=== PATIENT | male | born 1950 | race Caucasian/White ===

== ENCOUNTER 2016-07-08 17:06 | Inpatient (IN) | payer MEDICARE ==
--- NOTE | ~2016-07-08 | IDS ---
Interim Discharge Summary [facility] [address] [place]. [address] NAME: GAVINO LOPEZ : 46 STATUS : ADM IN [facility]#: [id number] AGE: 65 ADM/REG DATE : 07/08/16 MR#: [id number] REPORT SERV DATE: 07/13/16 DICTATED BY: DATE: REPORT STATUS : Draft TRANSCRIBED BY: MODL DATE: 07/13/16 ADMISSION DATE: 07/08/2016 DISCHARGE DATE: The patient was admitted to the Family Support Specialist Service, Dr. Henry Love. The patient is currently being managed by the Hospitalist Service, attending, Dr. Tyrone Camp. CONSULTANTS: Include, Dr. Porter Simon of General Surgery; Dr. Devonte Alexander of Hepatobiliary Surgery. CURRENT DIAGNOSES: 1. Hepatic mass with hemorrhage at admission, status post coil embolization in Interventional Radiology on 07/08/2016. 2. Hepatic mass status post CT-guided biopsy on 07/13/2016 in Interventional Radiology. 3. Chronic obstructive pulmonary disease with increased sputum production-currently being treated for bronchitis versus pneumonia. Sputum cultures and repeat chest x-ray pending. 4. History of daily alcohol abuse with early withdrawal evident 07/12/2016. On scheduled Librium and Ativan per CIWA protocol. 5. Right upper extremity swelling-rule out subclavian line associated deep venous thrombosis. 6. Prior history of myocardial infarction-home medications held due to hemorrhage and hypotension. 7. Generalized weakness-PT evaluation pending for discharge disposition planning. 8. Transaminitis-resolving, suspect due to liver mass with hemorrhage. Follow up hepatitis serologies. 9. Acute kidney injury present at admission-resolved. 10.Lipasemia at admission-resolved. IMAGIN. Portable chest x-ray, 07/08/2016, for shortness of breath shows severe emphysematous changes. 2. CT abdomen and pelvis, 07/08/2016, hemoperitoneum with significant amount of free blood. No history of a prior liver biopsy. Density may be small granuloma. Evidence of tumor in the right hepatic lobe. 3. Portable chest x-ray, 07/08/2016, status post subclavian line placement shows tip in the superior vena cava. 4. Visceral angiography, 07/08/2016, shows exophytic tumor with bleeding site identified arising from the inferior margin of the right liver. Technically successful coil embolization of the dominant feeding arteries. No additional arteries observed at this time. 5. Portable chest x-ray, 07/09/2016, COPD with no acute cardiopulmonary abnormality. PERTINENT LABS: Admission creatinine value 1.7, current value 0.8. Initial AST 575, currently 46; initial ALT 204, currently 54; initial alkaline phosphatase normal; initial total bilirubin 1.5, presently 1.6; initial lipase 1083, currently 165. Ammonia 45. BNP Interim Discharge Summary [address] [place]. [address] NAME: GAVINO LOPEZ : 46 STATUS : ADM IN [facility]#: [id number] AGE: 65 ADM/REG DATE : 07/08/16 MR#: [id number] REPORT SERV DATE: 07/13/16 DICTATED BY: DATE: REPORT STATUS : Draft TRANSCRIBED BY: MODL DATE: 07/13/16 72. Initial lactic acid level 3.5. Initial white blood cell count 24.2, currently 10.5. Hemoglobin values ranging from 9.8 to 12.8, currently 12.0. Platelet counts have been normal. INR 1.3 to 1.7. BRIEF HISTORY: For full details, please see the previously dictated history of present illness by Dr. Henry Love. Briefly, this is a 65-year-old white male with past medical history of alcohol abuse, hypertension, prior LA, who presented to the emergency department on the 07/08/2016 with chief complaints of abdominal tenderness and diarrhea. He also endorsed presyncope in the emergency department. In the emergency department, he had a CT scan of the abdomen showing bleeding around the liver and some intraperitoneal blood as well. The patient had a dynamic CT scan of the abdomen and pelvis demonstrating a liver mass. He went from the emergency department to Interventional Radiology for embolization and then was admitted to the intensive care unit to the Family Support Specialist Service. HOSPITAL COURSE: The patient was managed in the intensive care unit from 07/08/2016 to 07/10/2016, at which point, he was transferred out to the floor. I assumed his care on 07/11/2016. He was on Flagyl at that point for concern for possible liver infection. He was not demonstrating any evidence of rebleeding following his coil embolization in Interventional Radiology on the 07/08/2016. He has not required transfusions this admission. His hypotension has largely resolved and his home medications for hypertension and past myocardial infarction have been held. He was seen in consultation this week by Dr. Devonte Alexander of Hepatobiliary Surgery, who recommended CT-guided biopsy in Interventional Radiology. This took place today, 07/13/2016. The patient has had no difficulties post procedure and is currently recovering well back on [address] [place] [address]. Other issues this week have included early alcohol withdrawal. The patient does have a history of daily alcohol abuse, although on direct questioning, will deny this, but his family confirms. He has been on scheduled Librium this week with dose increased on the 07/12/2016 for evidence of increased irritability and some slight confusion. He has also been placed on the CIWA protocol and is receiving regular doses of Ativan. His mentation is improving, but today, his family was concerned that his irritability may also be related to pain medications and requested a change from Roxicodone to something different. Tramadol has been started instead. Also, through the course of this week, the patient has been demonstrating some increased sputum production and a weak cough. He was started on Levaquin on the 07/12/2016 for possible bronchitis. Chest x-ray on the 07/09/2016 was non revealing, but repeat is pending. The patient is now producing sputum and this will be sent for Gram stain and culture. His DuoNebs will be scheduled as well as he does have an extensive history of COPD with radiographic changes consistent with extensive COPD. Just today, the patient demonstrated some right upper extremity swelling. He does have a right subclavian line in place, placed on 07/08/2016 for resuscitation efforts. An ultrasound is pending of the right upper extremity to rule out a subclavian line associated DVT. Interim Discharge Summary [facility] [address] [address] [place]. [address] NAME: GAVINO LOPEZ : 46 STATUS : ADM IN PAT#: [id number] AGE: 65 ADM/REG DATE : 07/08/16 MR#: [id number] REPORT SERV DATE: 07/13/16 DICTATED BY: DATE: REPORT STATUS : Draft TRANSCRIBED BY: MODL DATE: 07/13/16 The patient remains very generally weak. He has been evaluated by Physical Therapy prior to the liver biopsy with a recommendation to consider inpatient physical therapy. At that time, he was reluctant. Physical therapy evaluation has been reordered to assist in discharge disposition planning. DISPOSITION: The patient remains hospitalized at present-results needing to be followed up include pathology from today's liver biopsy, hepatitis serologies, chest imaging, and the stat ultrasound of the right upper extremity pending to evaluate for subclavian associated DVT. RACIEL/JACEY Tyrone Camp M.D. / [id number] CC: Felice Gallardo MD
--- NOTE | ~2016-07-08 | HP ---
History And Physical [address] [place]. [address] NAME: GAVINO LOPEZ : 46 STATUS : ADM IN [facility]#: [id number] AGE: 65 ADM/REG DATE : 07/08/16 MR#: [id number] REPORT SERV DATE: 07/09/16 DICTATED BY: HENRY LOVE DATE: 07/08/16 REPORT STATUS : Draft TRANSCRIBED BY: MODL DATE: 07/08/16 DATE OF ADMISSION: 07/08/2016 CHIEF COMPLAINT: Abdominal pain. ADMISSION DIAGNOSIS: Intraabdominal bleeding, liver mass, hypotension, kidney injury, liver injury. HISTORY OF PRESENT ILLNESS: Mr. Lopez is a 65-year-old male with a past medical history noted below who presented to the hospital after having diarrhea abdominal tenderness. He was not feeling well. This started yesterday at 6 o'clock. It was mostly on the right side. He felt that it was severe enough that he needed to come in. Also, he has been having worsening diarrhea and diaphoresis. In the emergency room, the patient was noted to be lightheaded and with his severe abdominal pain, it was decided to go ahead and get a CT scan of his abdomen. There was noted the bleeding around the liver at that time. He had a dynamic CT scan which showed a liver mass. He eventually went and got that embolized by Interventional Radiology and still has a sheath in his right groin. Otherwise, the patient complains of nausea and vomiting along with cold flashes. On review of systems, he denies having any weight loss. PAST MEDICAL HISTORY: Myocardial infarction, anxiety, alcohol use. MEDICATIONS: Aspirin, statin medication. ALLERGIES: TO PENICILLIN AND DEMEROL. FAMILY HISTORY: Grandmother had gastric cancer, mother had colon cancer. SOCIAL HISTORY: The patient is currently , he continues to smoke, drinks around one to two bottles of alcohol a day. REVIEW OF SYSTEMS: All pertinent review of systems reviewed and is otherwise negative, please see above. PHYSICAL EXAMINATION: VITAL SIGNS: Afebrile, heart rate around 95, blood pressure currently around 130 systolic, respiratory rate normal, oxygen saturation greater than 95% on room air. GENERAL: The patient is in no acute distress; diaphoresis, however. HEENT: No JVD is noted, neck is supple. PULMONARY: Lungs are clear to auscultation bilaterally. ABDOMEN: The patient has mild epigastric pain, but otherwise no guarding or rebound. EXTREMITIES: All extremity is noted to have pulses, lukewarm. Sheath is in place with no significant bleeding. NEUROLOGIC: No focal neurological deficits. LABORATORY EXAMINATION: Hemoglobin 12.8, white blood cell count 24.2. Creatinine 1.74. History And Physical [address] [address] NAME: GAVINO LOPEZ : 46 STATUS : ADM IN [facility]#: [id number] AGE: 65 ADM/REG DATE : 07/08/16 MR#: [id number] REPORT SERV DATE: 07/09/16 DICTATED BY: HENRY LOVE DATE: 07/08/16 REPORT STATUS : Draft TRANSCRIBED BY: JACEY DATE: 07/08/16 Lactate 3.5. AST 575. Lipase 1083. ALT 204, bilirubin 1.5. RADIOLOGY: Please see above with regard to CT scan of the abdomen. ASSESSMENT AND PLAN: Mr. Lopez is a 65-year-old male who presents with the above-named complaints. 1. Liver mass: Unclear of this abnormality. Per Radiology, it is noted that this is a mass, I am also concerned of a liver abscess. We will start metronidazole. The patient will definitely need to have followup of this abnormality after the bleed, most likely an MRI and possibly biopsy. 2. Intraabdominal bleeding: The patient is to have q.6-hour CBC and transfuse as needed. The patient is currently hemodynamically stable and does not need an A-line. 3. Alcohol use: We will go ahead and start Librium. 4. Transaminitis: Unclear whether this is alcoholic hepatitis or whether this is new, we will continue to trend lipase and LFTs. 5. Pancreatitis: As noted above, lipase is elevated. Clinically, however, the patient does not have acute pancreatitis-like syndrome. We will continue to check lipase and provide clear liquid. 6. Acute diarrhea: Unclear of the etiology. We will check a C. difficile. 7. Sheath in the right groin: Once the patient is noted to be not bleeding any further, consider the discontinuation of this sheath. 8. Diet: As noted above. 9. Prophylaxis: SCDs, Protonix. 10.Code status: The patient is currently full code. HFQ/MODL Henry Love MD / [id number] CC: MD Luis Archuleta MD
--- NOTE | ~2016-07-08 | CN ---
Consultation Report [facility] [address] [place]. [address] NAME: GAVINO LOPEZ : 46 STATUS : ADM IN [facility]#: [id number] AGE: 65 ADM/REG DATE : 07/08/16 MR#: [id number] REPORT SERV DATE: 07/16/16 DICTATED BY: RODRÍGUEZ LARSON III DATE: 07/16/16 REPORT STATUS : Draft TRANSCRIBED BY: JACEY DATE: 07/16/16 CONSULTATION DATE OF CONSULTATION: 07/16/2016 REASON FOR CONSULTATION: Hepatic mass. HISTORY OF PRESENT ILLNESS: Mr. Lopez is a 65-year-old man who presented to the hospital with diarrhea and abdominal pain. A CT scan of his abdomen revealed a right liver mass, which appeared to have ruptured. He required embolization with Interventional Radiology for stabilization. Since that time, he has been diagnosed with a right upper extremity DVT. He also has hepatic encephalopathy and is receiving lactulose. PAST MEDICAL HISTORY: 1. Coronary artery disease status post DE. 2. Alcohol abuse. 3. Hepatitis C. 4. Anxiety. MEDICATIONS: Include aspirin and a statin. ALLERGIES: TO PENICILLIN AND DEMEROL. FAMILY HISTORY: Significant for grandmother with gastric cancer and mother with colon cancer. SOCIAL HISTORY: He is . Does smoke and drinks alcohol daily. REVIEW OF SYSTEMS: Unable to be obtained secondary to encephalopathy. PHYSICAL EXAMINATION: VITAL SIGNS: Blood pressure is 114/74, temperature is 97.6, pulse is 114, respiratory rate is 34. GENERAL: This is a well-developed, well-nourished man, in moderate distress secondary to agitation. EYES: Pupils are round and reactive to light. Extraocular muscles are intact. NECK: Supple with no masses or thyroid enlargement. No JVD. CARDIOVASCULAR: Regular rate and rhythm with no audible murmurs. There is no peripheral edema, other than the right upper extremity which has 2+ edema. LUNGS: Clear to auscultation bilaterally with normal respiratory effort. ABDOMEN: Soft, nontender, and nondistended with no ascites noted. SKIN: Warm and dry with good skin turgor. There is no jaundice noted. NEUROLOGIC: He is alert, but not oriented to person, place, or time. Consultation Report [facility] [address] [place]. [address] NAME: GAVINO LOPEZ : 46 STATUS : ADM IN PAT#: [id number] AGE: 65 ADM/REG DATE : 07/08/16 MR#: [id number] REPORT SERV DATE: 07/16/16 DICTATED BY: RODRÍGUEZ LARSON III DATE: 07/16/16 REPORT STATUS : Draft TRANSCRIBED BY: MODGale DATE: 07/16/16 IMAGING: CT scan was reviewed, did reveal a right liver mass. ASSESSMENT AND PLAN: 1. Liver mass. We will check an AST. Pathology is pending. I suspect he does have hepatocellular carcinoma given his alcohol and hepatitis C history. Question whether he is a hospice candidate or if he would be able to tolerate any treatment, and we will see if his mental status does improve. 2. Deep vein thrombosis, currently holding anticoagulation secondary to recent bleed secondary to ruptured hepatic mass. 3. We will follow along while inpatient and arrange outpatient followup upon discharge. MATTEO/JACEY Rodríguez Larson III, M.D. / [id number] CC: MD Luis Hernandez MD
--- NOTE | ~2016-07-08 | CN ---
Consultation Report [facility] [address] [place]. [address] NAME: GAVINO LOPEZ : 46 STATUS : ADM IN PAT#: [id number] AGE: 65 ADM/REG DATE : 07/08/16 MR#: [id number] REPORT SERV DATE: 07/10/16 DICTATED BY: JOAO SIMON DATE: 07/08/16 REPORT STATUS : Draft TRANSCRIBED BY: MODL DATE: 07/08/16 CONSULTATION NOTE DATE OF CONSULTATION: 07/08/2016 REASON FOR CONSULT: Evaluation of actively bleeding liver mass. CHIEF COMPLAINT: Abdominal pain. HISTORY OF PRESENT ILLNESS: This is a history and physical obtained as the patient was being transported to Interventional Radiology for embolization. Full details will be thoroughly investigated after the procedure and we will do chart review. For the time being, the patient presented to the emergency department after acute onset of pain at 6 p.m. yesterday which persisted and worsened throughout the night. It was associated with multiple bouts of nonbloody diarrhea as well as nonbloody, nonbilious emesis. Given the persistence of the pain and GI disturbances, he presented to the emergency department where initial CT scan without contrast showed concern for hemoperitoneum around right paracolic gutter and above the liver. There was additionally some perisplenic fluid. The patient was re-imaged using IV contrast which revealed what appeared to be a tumor in the right hepatic lobe, possibly ruptured. Interventional radiologists were called for embolization at that time. The patient at the time of this interview was being transported for that emergent embolization. In a brief discussion, he did indicate that this has never happened before and he did have a colonoscopy within the last 10 years which was normal per his report. He does take aspirin daily, but no other blood thinners. He reports a history of two heart attacks in the past, most recently in the fall of 2016 where revascularization stent was undertaken. Currently, complains of significant abdominal pain located in the right upper quadrant with no nausea. He denies the use of much alcohol though the patient's and another accomplice endorse that he drinks at least 6 packs of beer daily. He has never had an upper endoscopy that he can remember. On admission to the emergency department, he was hypotensive with a blood pressure initially in the 80s which responded to administration of 2 L of IV fluid where tachycardia resolved down to the low 100s and blood pressure responded into the one-teens over 60s. He was typed and crossed and right subclavian central venous line was placed. Further details of this patient's history will be reviewed following his brief history from his . PAST MEDICAL HISTORY: 1. Alcohol abuse. 2. Coronary artery disease. 3. Hypertension. PAST SURGICAL HISTORY: The patient denies any surgeries in his abdomen, though did have what he states was an amputated arm which was reattached on the left. Unsure of this history and no medical records available. MEDICATIONS: The patient reports daily aspirin and a blood pressure medicine, he does not Consultation Report [address] [place]. [address] NAME: GAVINO LOPEZ : 46 STATUS : ADM IN [facility]#: [id number] AGE: 65 ADM/REG DATE : 07/08/16 MR#: [id number] REPORT SERV DATE: 07/10/16 DICTATED BY: JOAO SIMON DATE: 07/08/16 REPORT STATUS : Draft TRANSCRIBED BY: JACEY DATE: 07/08/16 know. He once took Plavix, but is no longer on it per his report. ALLERGIES: THE PATIENT DENIES. FAMILY HISTORY: The patient denies any significant family history. SOCIAL HISTORY: The patient is a retired deliveryman, a [place] . He has smoked most of his life and uses occasional marijuana. He denies the use of much alcohol, although the patient's endorses the use of at least a 6-pack daily. PHYSICAL EXAMINATION: VITAL SIGNS: Temp 97.8, blood pressure 112/64, pulse 108, respirations 20. GENERAL APPEARANCE: The patient is alert and oriented, in no distress. He appears to be his stated age of 65. HEAD, EYES, EARS, NOSE, AND THROAT: Extraocular muscles are grossly intact. There is no scleral icterus. No facial droop. Oropharynx and conjunctivae are pink and moist. Hearing is grossly normal. NECK: Examination of the neck reveals no cervical lymphadenopathy. CHEST: No audible wheezes and excursion is nonlabored. CARDIOVASCULAR: Heart rate is regular with good distal perfusion and 2+ pulses in the extremities. ABDOMEN: Examination of the abdomen reveals some tenderness in the right upper quadrant, this is more prominent than in all other quadrants. He is soft and nondistended. EXTREMITIES: Showed no deformity, cyanosis, or edema. PSYCHIATRIC: Appropriate mood and affect. Speech pattern is normal. NEUROLOGIC: Reveals no focal deficits. LABORATORY STUDIES: Significant for lactate of 3.5; white blood cell count of 24.2, hemoglobin of 12.8, as well as a platelet count of 350; INR is slightly elevated at 1.3; the slightly elevated protime of 15.7. CMP significant for THADDEUS with a creatinine of 1.74, glucose of 145, bilirubin 1.5, an alkaline phosphatase of 85, ALT 204, AST 575, and lipase 1083. ASSESSMENT AND PLAN: This is a 65-year-old male with what appears to be a bleeding hepatic mass of unknown etiology. He does have some free fluid around the spleen, this may simply be dependent from the liver. He has originally been taken to the interventional radiologist for attempted embolization. Emergent hepatic resection is not recommended at this time, and the patient will need resuscitation and management of his medical comorbidities in the intensive care unit. He does have acute kidney injury as well as an elevated lipase and transaminitis. He will need biopsy of this in the future though the important management decision is based solely on stopping any active extravasation. We would recommend continuing the patient on n.p.o. status until further workup of his intraabdominal process can be obtained. In the meantime, General Surgery will be happy to follow along should the patient show any signs of clinical deterioration requiring surgical intervention outside of the Interventional Radiology suite. This patient was discussed with Dr. Simon who Consultation Report [address] [address] NAME: GAVINO LOPEZ : 46 STATUS : ADM IN PAT#: [id number] AGE: 65 ADM/REG DATE : 07/08/16 MR#: [id number] REPORT SERV DATE: 07/10/16 DICTATED BY: JOAO SIMON DATE: 07/08/16 REPORT STATUS : Draft TRANSCRIBED BY: JACEY DATE: 07/08/16 understands and agrees. DICTATED BY: MD IRVIN Nichols/JACEY Joao Simon M.D. / [id number] CC: MD Luis Archuleta MD
--- NOTE | ~2016-07-08 | DS ---
Discharge Summary [facility] [address] [place]. [address] NAME: GAVINO LOPEZ : 46 STATUS : DIS IN PAT#: [id number] AGE: 65 ADM/REG DATE : 07/08/16 MR#: [id number] REPORT SERV DATE: 07/19/16 DICTATED BY: ANTONIETA HINTON DATE: 07/18/16 REPORT STATUS : Draft TRANSCRIBED BY: MODL DATE: 07/18/16 ADMISSION DATE: 07/08/2016 DISCHARGE DATE: 07/18/2016 CONSULTATION: 1. Hepatobiliary surgeon Dr. Devonte Alexander. 2. Oncology Dr. Rodríguez Gagnon. 3. Gastroenterology Dr. Joao Simon. INVASIVE PROCEDURE DONE: 1. Emergency hepatic artery embolization, successful. 2. Liver biopsy. Pathology reports; hepatobiliary carcinoma confirmed. Official report not available in [employer] at the time of this dictation (however, a discussion was held with the pathologist who confirmed that the definitive diagnosis of hepatocellular carcinoma). DISCHARGE DIAGNOSES: 1. Hepatocellular cancer. 2. Hepatic encephalopathy. 3. Hepatic failure. 4. Hepatitis C infection. 5. Alcohol abuse. 6. Acute deep vein thrombosis of the right upper extremities. 7. Acute bronchitis. 8. Chronic obstructive pulmonary disease. 9. Hepatic hemorrhage, now resolved. 10.Acute kidney injury, present on admission, but resolved. DISCHARGE CONDITION: Critical. DISCHARGE DISPOSITION: Hospice. HISTORY OF PRESENT ILLNESS: For detailed HPI, please make reference to Dr. Henry Love's dictation on 07/08/2016. In brief, this is a 65-year-old male with medical history of alcohol abuse, COPD who presented to the hospital with complaints of severe abdominal pain associated with diarrhea and diaphoreses. Vital signs in the ER shows a heart rate of 95 beats per minute, blood pressure of 130 systolic, saturating 95% on room air. Physical exam noted for epigastric tenderness. No rebound. No guarding. CT of the abdomen showed a tumor that has ruptured in the right hepatic lobe. Laboratory data revealed hemoglobin of 12.8, hematocrit 42.3, WBC 24.2, platelets 350. INR 1.3. An assessment of hepatic mass with ruptured hemorrhage was made in the ER. The patient was transferred for an emergency embolization. The patient underwent embolization of the hepatic artery without any significant complications. Repeat abdominal imaging shows that Discharge Summary [facility] [address] [place]. [address] NAME: GAVINO LOPEZ : 46 STATUS : DIS IN PAT#: [id number] AGE: 65 ADM/REG DATE : 07/08/16 MR#: [id number] REPORT SERV DATE: 07/19/16 DICTATED BY: ANTONIETA HINTON DATE: 07/18/16 REPORT STATUS : Draft TRANSCRIBED BY: MODGale DATE: 07/18/16 the procedure was successful. The patient subsequently then underwent a liver biopsy. The pathology report of the liver biopsy confirmed the presence of hepatocellular carcinoma. HOSPITAL COURSE: Hepatic encephalopathies due to hepatocellular carcinoma. The patient was subsequently transferred from the ICU to the regular floor. He became progressively confused. Ammonia level was elevated. He was started on lactulose and rifaximin, however, his mental status progressively continued to decline. Oncology was consulted. Given the patient's overall prognosis and worsening mental status and possible liver failure, the patient is deemed at this time not a candidate for aggressive intervention. Also family expressed wish that the patient would not want to pursue any aggressive and invasive intervention. Also, an extensive family meeting was held between the patient's and his 2 daughters who all agreed after multiple deliberations that the patient should be transitioned to hospice care. The patient's code status was made DNR DNI. [facility] was consulted. The patient will be transferred to hospice care later today per family's wishes. DICTATED BY: MD ALAN Hernandez/JACEY Antonieta Hinton MD / [id number] CC: MD Luis Hernandez MD
--- NOTE | ~2016-07-08 | CN ---
Consultation Report [facility] [address] [place]. [address] NAME: GAVINO LOPEZ : 46 STATUS : ADM IN [facility]#: [id number] AGE: 65 ADM/REG DATE : 07/08/16 MR#: [id number] REPORT SERV DATE: 07/12/16 DICTATED BY: JAN ALEXANDER DATE: 07/12/16 REPORT STATUS : Draft TRANSCRIBED BY: MODL DATE: 07/12/16 CONSULTATION DATE OF CONSULTATION: 07/12/2016 REASON FOR CONSULTATION: Liver mass. HISTORY OF PRESENT ILLNESS: The patient is a pleasant, 65-year-old white male, who was admitted several days ago and found to have accidentally bleeding liver mass. The patient presented initially to the emergency room after acute onset of abdominal pain, as well as nausea and diarrhea. Initial CT scan showed hemoperitoneum and a right-sided liver mass. The patient was taken emergently to Interventional Radiology for embolization due to hypotension. He has since been hemodynamically stable and has not had any additional abdominal pains. He has otherwise been in his baseline state of health. He does have a significant alcohol intake history and drinks at least a six-pack of beer daily. Unless it is on history of present illness and past medical history is taken from the chart, he is currently undergoing at least some degree of withdrawal and has some confusion. He has no known liver disease. REVIEW OF SYSTEMS: A complete 12-point review of system was obtained and is negative for what is mentioned positively in the HPI. PAST MEDICAL HISTORY: Significant for coronary artery disease, hypertension, and alcohol abuse. PAST SURGICAL HISTORY: Positive for arm surgery, but no abdominal surgeries. MEDICATIONS: Please see chart for full details. ALLERGIES: NO KNOWN DRUG ALLERGIES. FAMILY HISTORY: Noncontributory. SOCIAL HISTORY: He is a current smoker and every day drink at least six beers a day. He does endorse occasional marijuana use. Denies other illicit drugs. PHYSICAL EXAMINATION: VITAL SIGNS: Blood pressure is 100/63, O2 saturation 99%, temperature is 98.4, pulse 96, and respirations 20. GENERAL: He is alert and nontoxic. HEENT: Head is normocephalic and atraumatic. NECK: Supple. CHEST: Clear to auscultation bilaterally. Consultation Report [facility] [address]. [address] NAME: GAVINO LOPEZ : 46 STATUS : ADM IN PAT#: [id number] AGE: 65 ADM/REG DATE : 07/08/16 MR#: [id number] REPORT SERV DATE: 07/12/16 DICTATED BY: JAN ALEXANDER DATE: 07/12/16 REPORT STATUS : Draft TRANSCRIBED BY: JACEY DATE: 07/12/16 HEART: Regular rate and rhythm. ABDOMEN: Soft, nontender, and nondistended. EXTREMITIES: Moves all extremities equally. NEUROLOGIC: He is alert, but somewhat confused. He is oriented to self and location. SKIN: Warm and perfused. LABORATORY DATA: Lab data has been reviewed. His liver function tests are within normal limits except for bilirubin, which is slightly elevated at 1.6. His transaminases are elevated upon admission but returned to normal. H and H stable at 10.8 and 33. Platelets are normal at 180. IMAGING: I have personally reviewed the CT scan and interpreted the images myself. ASSESSMENT/PLAN: This is a 65-year-old, white male, who was admitted with a bleeding liver mass, which has now stopped bleeding. This is concerning for hepatocellular carcinoma in light of his drinking history, although he has no obvious stigmata of cirrhosis. I discussed his case with Dr. Camp and we will consult Interventional Radiology for CT- guided biopsy. We will also check hepatitis viral panel. APOORVA/JACEY Jan Alexander MD / [id number] CC: Felice Gallardo MD
[2016-07-08 15:17] LABS: BASOPHILS 0.1 %; BASOPHILS ABSOLUTE 0.02 10/3/uL (0.0-0.16); EOSINOPHILS 0 %; EOSINOPHILS ABSOLUTE 0.01 10/3/uL (0.0-0.53); ER CBC TAT 0 Hrs 16 Mins; HEMATOCRIT 38.1 % (40.0-51.0); HEMOGLOBIN 12.8 g/dL (13.6-17.8); IMMATURE GRANULOCYTES 0.4 %; IMMATURE GRANULOCYTES ABSOLUTE 0.09 10/3/uL (0.0-0.11); LYMPHOCYTES 11.5 %; LYMPHOCYTES ABSOLUTE 2.78 10/3/uL (0.67-4.30); MEAN CORPUS HGB CONC 33.6 g/dL (32.0-36.0); MEAN CORPUSCULAR HEMOGLOB 32.2 pg (26.0-34.0); MEAN CORPUSCULAR VOLUME 95.7 fL (80-100); MEAN PLATELET VOLUME 10.2 fL (9.2-13.0); MONOCYTES 9.1 %; NEUTROPHILS 78.9 %; NEUTROPHILS ABSOLUTE 19.05 10/3/uL (2.02-8.40); PLATELET COUNT 350 10/3/uL (150-400); RBC DISTRIBUTION WIDTH 13.3 % (12.0-16.0); RED CELL COUNT 3.98 10/6/uL (4.7-6.1); WHITE BLOOD CELLS 24.2 10/3/uL (4.5-10.5)
[2016-07-08 15:19] LABS: MANUAL DIFF NO %
[2016-07-08 15:28] LABS: A/G RATIO 0.7 (0.7-1.9); ALBUMIN 2.9 G/DL (3.5-5.0); ALKALINE PHOSPHATASE 85 U/L (45-117); CALCIUM, SERUM 8.6 MG/DL (8.5-10.4); CHLORIDE, SERUM 107 MMOL/L (96-112); CO2 (CARBON DIOXIDE) 25 MMOL/L (24-34); GLOBULIN 3.9 G/DL (2.5-4.1); SGPT(ALT) 204 U/L (5-65); SODIUM, SERUM 139 MMOL/L (135-148); TOTAL PROTEIN 6.8 G/DL (6.0-8.5)
[2016-07-08 15:30] LABS: BUN (BLOOD UREA NITROGEN) 23 MG/DL (6-23); CREATININE 1.74 MG/DL (0.70-1.30); GFR AFRICAN AMERICAN 46 ML/MIN (>=60); GFR NON AFRICAN AMERICAN 40 ML/MIN (>=60); GLUCOSE, SERUM 145 MG/DL (60-99); SGOT(AST) 575 U/L (5-40); TOTAL BILIRUBIN 1.5 MG/DL (0-1.2)
[2016-07-08 15:51] LABS: LACTATE 3.5 MMOL/L (0.3-2.4)
[2016-07-08 17:10] LABS: INTERNATIONAL NORMAL RATI 1.3 UNITS (-); PROTIME (NOT ORD) 15.7 SEC (12.0-14.5)
[2016-07-08 17:11] LABS: PARTIAL THROMBO TIME 29.4 SEC (22.5-37.2)
[2016-07-08] MEDS ORDERED: TOPXL25 PO (17:21)
[2016-07-08] MEDS ORDERED: ASAB PO (17:21)
[2016-07-08] MEDS ORDERED: PRIN2.5 PO (17:22)
[2016-07-08] MEDS ORDERED: LIPITOR80 MG PO (17:22)
[2016-07-08 17:29] LABS: PROCALCITONIN 0.41 ng/mL (<0.5)
[2016-07-09 00:05] LABS: BASOPHILS 0.1 %; BASOPHILS ABSOLUTE 0.02 10/3/uL (0.0-0.16); EOSINOPHILS 0 %; IMMATURE GRANULOCYTES 0.4 %; IMMATURE GRANULOCYTES ABSOLUTE 0.07 10/3/uL (0.0-0.11); LYMPHOCYTES 14.5 %; LYMPHOCYTES ABSOLUTE 2.35 10/3/uL (0.67-4.30); MEAN CORPUS HGB CONC 34.3 g/dL (32.0-36.0); MEAN CORPUSCULAR HEMOGLOB 32.2 pg (26.0-34.0); MEAN PLATELET VOLUME 9.7 fL (9.2-13.0); MONOCYTES 11.1 %; NEUTROPHILS 73.9 %; NEUTROPHILS ABSOLUTE 11.96 10/3/uL (2.02-8.40); RBC DISTRIBUTION WIDTH 13.6 % (12.0-16.0); WHITE BLOOD CELLS 16.2 10/3/uL (4.5-10.5)
[2016-07-09 00:10] LABS: HEMOGLOBIN 9.7 g/dL (13.6-17.8); PLATELET COUNT 209 10/3/uL (150-400); RED CELL COUNT 3.01 10/6/uL (4.7-6.1)
[2016-07-09 00:11] LABS: HEMATOCRIT 28.3 % (40.0-51.0); MANUAL DIFF NO %
[2016-07-09 05:23] LABS: BASOPHILS 0.1 %; BASOPHILS ABSOLUTE 0.01 10/3/uL (0.0-0.16); EOSINOPHILS 0.6 %; EOSINOPHILS ABSOLUTE 0.07 10/3/uL (0.0-0.53); HEMATOCRIT 32.4 % (40.0-51.0); HEMOGLOBIN 10.8 g/dL (13.6-17.8); IMMATURE GRANULOCYTES 0.3 %; IMMATURE GRANULOCYTES ABSOLUTE 0.04 10/3/uL (0.0-0.11); LYMPHOCYTES 18.8 %; LYMPHOCYTES ABSOLUTE 2.33 10/3/uL (0.67-4.30); MANUAL DIFF NO %; MEAN CORPUS HGB CONC 33.3 g/dL (32.0-36.0); MEAN CORPUSCULAR HEMOGLOB 32.1 pg (26.0-34.0); MEAN CORPUSCULAR VOLUME 96.4 fL (80-100); MEAN PLATELET VOLUME 10.8 fL (9.2-13.0); MONOCYTES ABSOLUTE 1.61 10/3/uL (0.21-1.20); NEUTROPHILS 67.2 %; NEUTROPHILS ABSOLUTE 8.33 10/3/uL (2.02-8.40); PLATELET COUNT 185 10/3/uL (150-400); RBC DISTRIBUTION WIDTH 13.8 % (12.0-16.0); RED CELL COUNT 3.36 10/6/uL (4.7-6.1); WHITE BLOOD CELLS 12.4 10/3/uL (4.5-10.5)
[2016-07-09 07:50] LABS: A/G RATIO 0.8 (0.7-1.9); ALBUMIN 2.5 G/DL (3.5-5.0); BUN (BLOOD UREA NITROGEN) 21 MG/DL (6-23); CALCIUM, SERUM 7.9 MG/DL (8.5-10.4); CHLORIDE, SERUM 111 MMOL/L (96-112); CO2 (CARBON DIOXIDE) 25 MMOL/L (24-34); GLOBULIN 3.2 G/DL (2.5-4.1); GLUCOSE, SERUM 124 MG/DL (60-99); SGOT(AST) 240 U/L (5-40); SGPT(ALT) 148 U/L (5-65); SODIUM, SERUM 142 MMOL/L (135-148); TOTAL PROTEIN 5.7 G/DL (6.0-8.5)
[2016-07-09 07:51] LABS: ALKALINE PHOSPHATASE 67 U/L (45-117); CREATININE 0.95 MG/DL (0.70-1.30); GFR AFRICAN AMERICAN 96 ML/MIN (>=60); GFR NON AFRICAN AMERICAN 83 ML/MIN (>=60); TOTAL BILIRUBIN 0.8 MG/DL (0-1.2)
[2016-07-09 12:42] LABS: BASOPHILS 0.2 %; BASOPHILS ABSOLUTE 0.02 10/3/uL (0.0-0.16); EOSINOPHILS 0.7 %; EOSINOPHILS ABSOLUTE 0.07 10/3/uL (0.0-0.53); HEMATOCRIT 31.3 % (40.0-51.0); HEMOGLOBIN 10.3 g/dL (13.6-17.8); IMMATURE GRANULOCYTES 0.3 %; IMMATURE GRANULOCYTES ABSOLUTE 0.03 10/3/uL (0.0-0.11); LYMPHOCYTES ABSOLUTE 1.81 10/3/uL (0.67-4.30); MEAN CORPUS HGB CONC 32.9 g/dL (32.0-36.0); MEAN CORPUSCULAR HEMOGLOB 31.9 pg (26.0-34.0); MEAN CORPUSCULAR VOLUME 96.9 fL (80-100); MEAN PLATELET VOLUME 9.6 fL (9.2-13.0); MONOCYTES 14.1 %; NEUTROPHILS 67.7 %; PLATELET COUNT 184 10/3/uL (150-400); RBC DISTRIBUTION WIDTH 13.7 % (12.0-16.0); RED CELL COUNT 3.23 10/6/uL (4.7-6.1); WHITE BLOOD CELLS 10.6 10/3/uL (4.5-10.5)
[2016-07-09 12:45] LABS: MANUAL DIFF NO %
[2016-07-09 18:13] LABS: BASOPHILS 0.1 %; BASOPHILS ABSOLUTE 0.01 10/3/uL (0.0-0.16); EOSINOPHILS 0.8 %; EOSINOPHILS ABSOLUTE 0.09 10/3/uL (0.0-0.53); HEMATOCRIT 30.6 % (40.0-51.0); HEMOGLOBIN 10.2 g/dL (13.6-17.8); IMMATURE GRANULOCYTES 0.4 %; IMMATURE GRANULOCYTES ABSOLUTE 0.05 10/3/uL (0.0-0.11); LYMPHOCYTES 18.5 %; LYMPHOCYTES ABSOLUTE 2.17 10/3/uL (0.67-4.30); MANUAL DIFF NO %; MEAN CORPUS HGB CONC 33.3 g/dL (32.0-36.0); MEAN CORPUSCULAR HEMOGLOB 31.8 pg (26.0-34.0); MEAN CORPUSCULAR VOLUME 95.3 fL (80-100); MEAN PLATELET VOLUME 9.8 fL (9.2-13.0); MONOCYTES 18.8 %; NEUTROPHILS 61.4 %; NEUTROPHILS ABSOLUTE 7.19 10/3/uL (2.02-8.40); PLATELET COUNT 189 10/3/uL (150-400); RBC DISTRIBUTION WIDTH 13.6 % (12.0-16.0); RED CELL COUNT 3.21 10/6/uL (4.7-6.1); WHITE BLOOD CELLS 11.7 10/3/uL (4.5-10.5)
[2016-07-10 06:03] LABS: BASOPHILS 0.1 %; BASOPHILS ABSOLUTE 0.01 10/3/uL (0.0-0.16); EOSINOPHILS 0.9 %; EOSINOPHILS ABSOLUTE 0.08 10/3/uL (0.0-0.53); HEMATOCRIT 29.5 % (40.0-51.0); HEMOGLOBIN 9.8 g/dL (13.6-17.8); IMMATURE GRANULOCYTES 0.2 %; IMMATURE GRANULOCYTES ABSOLUTE 0.02 10/3/uL (0.0-0.11); LYMPHOCYTES 21.5 %; LYMPHOCYTES ABSOLUTE 1.84 10/3/uL (0.67-4.30); MEAN CORPUS HGB CONC 33.2 g/dL (32.0-36.0); MEAN CORPUSCULAR VOLUME 96.4 fL (80-100); MEAN PLATELET VOLUME 9.8 fL (9.2-13.0); MONOCYTES 17.4 %; MONOCYTES ABSOLUTE 1.49 10/3/uL (0.21-1.20); NEUTROPHILS 59.9 %; NEUTROPHILS ABSOLUTE 5.12 10/3/uL (2.02-8.40); PLATELET COUNT 194 10/3/uL (150-400); RBC DISTRIBUTION WIDTH 13.7 % (12.0-16.0); RED CELL COUNT 3.06 10/6/uL (4.7-6.1); WHITE BLOOD CELLS 8.6 10/3/uL (4.5-10.5)
[2016-07-10 06:04] LABS: MANUAL DIFF NO %
[2016-07-10 06:24] LABS: A/G RATIO 0.7 (0.7-1.9); ALBUMIN 2.3 G/DL (3.5-5.0); ALKALINE PHOSPHATASE 65 U/L (45-117); BUN (BLOOD UREA NITROGEN) 15 MG/DL (6-23); CALCIUM, SERUM 7.8 MG/DL (8.5-10.4); CHLORIDE, SERUM 111 MMOL/L (96-112); CO2 (CARBON DIOXIDE) 23 MMOL/L (24-34); CREATININE 0.84 MG/DL (0.70-1.30); GFR AFRICAN AMERICAN 105 ML/MIN (>=60); GFR NON AFRICAN AMERICAN 91 ML/MIN (>=60); GLOBULIN 3.2 G/DL (2.5-4.1); GLUCOSE, SERUM 113 MG/DL (60-99); PHOSPHORUS, SERUM 1.7 MG/DL (2.5-4.5); POTASSIUM, SERUM 3.9 MMOL/L (3.5-5.3); SGOT(AST) 158 U/L (5-40); SGPT(ALT) 109 U/L (5-65); SODIUM, SERUM 141 MMOL/L (135-148); TOTAL BILIRUBIN 1.3 MG/DL (0-1.2); TOTAL PROTEIN 5.5 G/DL (6.0-8.5)
[2016-07-10 10:47] LABS: HEMATOCRIT 30.5 % (40.0-51.0); HEMOGLOBIN 10.1 g/dL (13.6-17.8); MANUAL DIFF YES %; MEAN CORPUS HGB CONC 33.1 g/dL (32.0-36.0); MEAN CORPUSCULAR HEMOGLOB 31.9 pg (26.0-34.0); MEAN CORPUSCULAR VOLUME 96.2 fL (80-100); MEAN PLATELET VOLUME 9.5 fL (9.2-13.0); RBC DISTRIBUTION WIDTH 13.7 % (12.0-16.0); RED CELL COUNT 3.17 10/6/uL (4.7-6.1); WHITE BLOOD CELLS 8.5 10/3/uL (4.5-10.5)
[2016-07-10 10:56] LABS: PLATELET COUNT 178 10/3/uL (150-400)
[2016-07-10 11:26] LABS: BAND NEUTROPHILS 1 %; LYMPHOCYTES 17 %; LYMPHOCYTES ABSOLUTE (CALC) 1.45 10/3/uL (0.67-4.30); MONOCYTES 14 %; MONOCYTES ABSOLUTE (CALC) 1.19 10/3/uL (0.21-1.20); NEUTROPHILS ABSOLUTE (CALC) 5.87 10/3/uL (2.02-8.40); PLATELET ESTIMATE ADQ (ADEQUATE); RBC MORPHOLOGY NORM (NORMAL); SEGMENTED NEUTROPHIL (0) 68 %; TOTAL NUCLEATED CELLS 100
[2016-07-10 19:47] LABS: HEMATOCRIT 32.8 % (40.0-51.0); MEAN CORPUS HGB CONC 33.5 g/dL (32.0-36.0); MEAN CORPUSCULAR HEMOGLOB 32.6 pg (26.0-34.0); MEAN CORPUSCULAR VOLUME 97.3 fL (80-100); MEAN PLATELET VOLUME 9.4 fL (9.2-13.0); PLATELET COUNT 186 10/3/uL (150-400); RBC DISTRIBUTION WIDTH 13.5 % (12.0-16.0); RED CELL COUNT 3.37 10/6/uL (4.7-6.1); WHITE BLOOD CELLS 8.2 10/3/uL (4.5-10.5)
[2016-07-10 19:49] LABS: MANUAL DIFF YES %
[2016-07-10 20:14] LABS: EOSINOPHILS 1 %; EOSINOPHILS ABSOLUTE (CALC) 0.08 10/3/uL (0.0-0.53); LYMPHOCYTES 11 %; MONOCYTES 14 %; MONOCYTES ABSOLUTE (CALC) 1.15 10/3/uL (0.21-1.20); NEUTROPHILS ABSOLUTE (CALC) 6.07 10/3/uL (2.02-8.40); PLATELET ESTIMATE ADQ (ADEQUATE); SEGMENTED NEUTROPHIL (0) 74 %; TOTAL NUCLEATED CELLS 100
[2016-07-10 20:15] LABS: RBC MORPHOLOGY NORM (NORMAL)
[2016-07-11 06:00] LABS: BASOPHILS 0.4 %; BASOPHILS ABSOLUTE 0.03 10/3/uL (0.0-0.16); EOSINOPHILS ABSOLUTE 0.14 10/3/uL (0.0-0.53); HEMATOCRIT 30.4 % (40.0-51.0); IMMATURE GRANULOCYTES 0.3 %; IMMATURE GRANULOCYTES ABSOLUTE 0.02 10/3/uL (0.0-0.11); LYMPHOCYTES 21.4 %; LYMPHOCYTES ABSOLUTE 1.47 10/3/uL (0.67-4.30); MANUAL DIFF NO %; MEAN CORPUS HGB CONC 32.9 g/dL (32.0-36.0); MEAN CORPUSCULAR HEMOGLOB 32.6 pg (26.0-34.0); MEAN PLATELET VOLUME 9.4 fL (9.2-13.0); MONOCYTES 17.3 %; MONOCYTES ABSOLUTE 1.19 10/3/uL (0.21-1.20); NEUTROPHILS 58.6 %; NEUTROPHILS ABSOLUTE 4.02 10/3/uL (2.02-8.40); PLATELET COUNT 170 10/3/uL (150-400); RBC DISTRIBUTION WIDTH 13.6 % (12.0-16.0); RED CELL COUNT 3.07 10/6/uL (4.7-6.1); WHITE BLOOD CELLS 6.9 10/3/uL (4.5-10.5)
[2016-07-11 06:20] LABS: BUN (BLOOD UREA NITROGEN) 9 MG/DL (6-23); CALCIUM, SERUM 7.6 MG/DL (8.5-10.4); CHLORIDE, SERUM 112 MMOL/L (96-112); CO2 (CARBON DIOXIDE) 23 MMOL/L (24-34); CREATININE 0.79 MG/DL (0.70-1.30); GFR AFRICAN AMERICAN 108 ML/MIN (>=60); GFR NON AFRICAN AMERICAN 93 ML/MIN (>=60); GLUCOSE, SERUM 122 MG/DL (60-99); POTASSIUM, SERUM 3.6 MMOL/L (3.5-5.3); SODIUM, SERUM 142 MMOL/L (135-148)
[2016-07-12 05:22] LABS: HEMOGLOBIN 10.8 g/dL (13.6-17.8); MEAN CORPUS HGB CONC 32.7 g/dL (32.0-36.0); MEAN CORPUSCULAR VOLUME 97.6 fL (80-100); MEAN PLATELET VOLUME 9.6 fL (9.2-13.0); PLATELET COUNT 181 10/3/uL (150-400); RED CELL COUNT 3.38 10/6/uL (4.7-6.1); WHITE BLOOD CELLS 8.4 10/3/uL (4.5-10.5)
[2016-07-12 05:23] LABS: MANUAL DIFF YES %
[2016-07-12 05:37] LABS: A/G RATIO 0.7 (0.7-1.9); ALBUMIN 2.1 G/DL (3.5-5.0); ALKALINE PHOSPHATASE 59 U/L (45-117); BUN (BLOOD UREA NITROGEN) 8 MG/DL (6-23); CALCIUM, SERUM 7.7 MG/DL (8.5-10.4); CHLORIDE, SERUM 112 MMOL/L (96-112); CO2 (CARBON DIOXIDE) 23 MMOL/L (24-34); GFR AFRICAN AMERICAN 107 ML/MIN (>=60); GFR NON AFRICAN AMERICAN 92 ML/MIN (>=60); GLUCOSE, SERUM 118 MG/DL (60-99); POTASSIUM, SERUM 3.9 MMOL/L (3.5-5.3); SGOT(AST) 46 U/L (5-40); SGPT(ALT) 54 U/L (5-65); SODIUM, SERUM 142 MMOL/L (135-148); TOTAL BILIRUBIN 1.6 MG/DL (0-1.2); TOTAL PROTEIN 5.1 G/DL (6.0-8.5)
[2016-07-12 05:41] LABS: BAND NEUTROPHILS 1 %; BASOPHILS 2 %; BASOPHILS ABSOLUTE (CALC) 0.17 10/3/uL (0.0-0.16); EOSINOPHILS 6 %; LYMPHOCYTES 12 %; LYMPHOCYTES ABSOLUTE (CALC) 1.01 10/3/uL (0.67-4.30); MONOCYTES 4 %; MONOCYTES ABSOLUTE (CALC) 0.34 10/3/uL (0.21-1.20); NEUTROPHILS ABSOLUTE (CALC) 6.38 10/3/uL (2.02-8.40); SEGMENTED NEUTROPHIL (0) 75 %; TOTAL NUCLEATED CELLS 100
[2016-07-12 05:42] LABS: PLATELET ESTIMATE ADQ (ADEQUATE); RBC MORPHOLOGY NORM (NORMAL)
[2016-07-13 04:49] LABS: BASOPHILS 0.2 %; BASOPHILS ABSOLUTE 0.02 10/3/uL (0.0-0.16); EOSINOPHILS 4.6 %; EOSINOPHILS ABSOLUTE 0.48 10/3/uL (0.0-0.53); HEMATOCRIT 35.7 % (40.0-51.0); IMMATURE GRANULOCYTES 0.4 %; IMMATURE GRANULOCYTES ABSOLUTE 0.04 10/3/uL (0.0-0.11); LYMPHOCYTES 14.2 %; LYMPHOCYTES ABSOLUTE 1.49 10/3/uL (0.67-4.30); MEAN CORPUS HGB CONC 33.6 g/dL (32.0-36.0); MEAN CORPUSCULAR HEMOGLOB 32.7 pg (26.0-34.0); MEAN CORPUSCULAR VOLUME 97.3 fL (80-100); MEAN PLATELET VOLUME 9.6 fL (9.2-13.0); MONOCYTES 18.5 %; MONOCYTES ABSOLUTE 1.93 10/3/uL (0.21-1.20); NEUTROPHILS 62.1 %; PLATELET COUNT 176 10/3/uL (150-400); RBC DISTRIBUTION WIDTH 14.1 % (12.0-16.0); RED CELL COUNT 3.67 10/6/uL (4.7-6.1); WHITE BLOOD CELLS 10.5 10/3/uL (4.5-10.5)
[2016-07-13 04:51] LABS: MANUAL DIFF NO %
[2016-07-13 04:52] LABS: INTERNATIONAL NORMAL RATI 1.7 UNITS (-)
[2016-07-13 04:54] LABS: PROTIME (NOT ORD) 19.9 SEC (12.0-14.5)
[2016-07-13 05:23] LABS: B NATRIURETIC PEPTIDE (BNP) 71.7 PG/ML (< 100.0)
[2016-07-14 04:50] LABS: A/G RATIO 0.7 (0.7-1.9); ALBUMIN 2.3 G/DL (3.5-5.0); ALKALINE PHOSPHATASE 69 U/L (45-117); BASOPHILS 0.2 %; BASOPHILS ABSOLUTE 0.02 10/3/uL (0.0-0.16); BUN (BLOOD UREA NITROGEN) 10 MG/DL (6-23); CALCIUM, SERUM 7.6 MG/DL (8.5-10.4); CHLORIDE, SERUM 108 MMOL/L (96-112); CREATININE 0.81 MG/DL (0.70-1.30); EOSINOPHILS 3.6 %; EOSINOPHILS ABSOLUTE 0.37 10/3/uL (0.0-0.53); GFR AFRICAN AMERICAN 107 ML/MIN (>=60); GFR NON AFRICAN AMERICAN 92 ML/MIN (>=60); GLOBULIN 3.5 G/DL (2.5-4.1); GLUCOSE, SERUM 101 MG/DL (60-99); HEMATOCRIT 39.2 % (40.0-51.0); IMMATURE GRANULOCYTES 0.5 %; IMMATURE GRANULOCYTES ABSOLUTE 0.05 10/3/uL (0.0-0.11); LYMPHOCYTES 12.4 %; LYMPHOCYTES ABSOLUTE 1.29 10/3/uL (0.67-4.30); MANUAL DIFF NO %; MEAN CORPUS HGB CONC 33.2 g/dL (32.0-36.0); MEAN CORPUSCULAR HEMOGLOB 32.4 pg (26.0-34.0); MEAN CORPUSCULAR VOLUME 97.8 fL (80-100); MONOCYTES 15.4 %; NEUTROPHILS 67.9 %; NEUTROPHILS ABSOLUTE 7.07 10/3/uL (2.02-8.40); PLATELET COUNT 199 10/3/uL (150-400); POTASSIUM, SERUM 4.1 MMOL/L (3.5-5.3); RBC DISTRIBUTION WIDTH 14.4 % (12.0-16.0); RED CELL COUNT 4.01 10/6/uL (4.7-6.1); SGOT(AST) 36 U/L (5-40); SGPT(ALT) 38 U/L (5-65); SODIUM, SERUM 143 MMOL/L (135-148); TOTAL BILIRUBIN 1.4 MG/DL (0-1.2); TOTAL PROTEIN 5.8 G/DL (6.0-8.5); WHITE BLOOD CELLS 10.4 10/3/uL (4.5-10.5)
[2016-07-14 04:51] LABS: CO2 (CARBON DIOXIDE) 28 MMOL/L (24-34)
[2016-07-14 10:39] LABS: HEPATITIS B SURFACE ANTIGEN NON-REACTIVE (NON-REACT)
[2016-07-14 10:52] LABS: HEPATITIS B CORE AB IGM NON-REACTIVE (NON-REAC)
[2016-07-14 10:53] LABS: HEP A ANTIBODY IGM NON-REACTIVE (NON-REACT)
[2016-07-14 13:33] LABS: HEPATITIS C ANTIBODY REACTIVE (NON-REACT)
[2016-07-14 20:39] LABS: INTERNATIONAL NORMAL RATI 1.6 UNITS (-); PROTIME (NOT ORD) 19.2 SEC (12.0-14.5)
[2016-07-14 20:47] LABS: ALBUMIN 2.1 G/DL (3.5-5.0); DIRECT BILIRUBIN 0.5 MG/DL (0.0-0.4); INDIRECT BILIRUBIN(NOT ORDER) 0.5 MG/DL (0.1-0.9); TOTAL PROTEIN 5.7 G/DL (6.0-8.5)
[2016-07-15 07:48] LABS: BASOPHILS 0.2 %; BASOPHILS ABSOLUTE 0.02 10/3/uL (0.0-0.16); EOSINOPHILS 2.6 %; EOSINOPHILS ABSOLUTE 0.26 10/3/uL (0.0-0.53); HEMATOCRIT 40.6 % (40.0-51.0); HEMOGLOBIN 13.4 g/dL (13.6-17.8); IMMATURE GRANULOCYTES 0.5 %; IMMATURE GRANULOCYTES ABSOLUTE 0.05 10/3/uL (0.0-0.11); LYMPHOCYTES 8.5 %; LYMPHOCYTES ABSOLUTE 0.86 10/3/uL (0.67-4.30); MEAN CORPUSCULAR HEMOGLOB 32.2 pg (26.0-34.0); MEAN CORPUSCULAR VOLUME 97.6 fL (80-100); MEAN PLATELET VOLUME 9.5 fL (9.2-13.0); MONOCYTES 18.3 %; MONOCYTES ABSOLUTE 1.85 10/3/uL (0.21-1.20); NEUTROPHILS 69.9 %; NEUTROPHILS ABSOLUTE 7.07 10/3/uL (2.02-8.40); PLATELET COUNT 183 10/3/uL (150-400); RBC DISTRIBUTION WIDTH 14.9 % (12.0-16.0); RED CELL COUNT 4.16 10/6/uL (4.7-6.1); WHITE BLOOD CELLS 10.1 10/3/uL (4.5-10.5)
[2016-07-15 07:56] LABS: MANUAL DIFF NO %
[2016-07-15 08:01] LABS: ALBUMIN 2.3 G/DL (3.5-5.0); BUN (BLOOD UREA NITROGEN) 10 MG/DL (6-23); CALCIUM, SERUM 7.9 MG/DL (8.5-10.4); CHLORIDE, SERUM 109 MMOL/L (96-112); CO2 (CARBON DIOXIDE) 27 MMOL/L (24-34); CREATININE 0.81 MG/DL (0.70-1.30); GFR AFRICAN AMERICAN 107 ML/MIN (>=60); GFR NON AFRICAN AMERICAN 92 ML/MIN (>=60); GLUCOSE, SERUM 113 MG/DL (60-99); PHOSPHORUS, SERUM 2.4 MG/DL (2.5-4.5); POTASSIUM, SERUM 4.1 MMOL/L (3.5-5.3); SODIUM, SERUM 142 MMOL/L (135-148)
[2016-07-16 04:14] LABS: BASOPHILS 0.2 %; BASOPHILS ABSOLUTE 0.03 10/3/uL (0.0-0.16); EOSINOPHILS 1.9 %; EOSINOPHILS ABSOLUTE 0.26 10/3/uL (0.0-0.53); HEMATOCRIT 42.4 % (40.0-51.0); HEMOGLOBIN 13.8 g/dL (13.6-17.8); IMMATURE GRANULOCYTES 0.3 %; IMMATURE GRANULOCYTES ABSOLUTE 0.04 10/3/uL (0.0-0.11); LYMPHOCYTES 10.4 %; LYMPHOCYTES ABSOLUTE 1.41 10/3/uL (0.67-4.30); MEAN CORPUS HGB CONC 32.5 g/dL (32.0-36.0); MEAN CORPUSCULAR HEMOGLOB 32.2 pg (26.0-34.0); MEAN CORPUSCULAR VOLUME 98.8 fL (80-100); MEAN PLATELET VOLUME 9.8 fL (9.2-13.0); MONOCYTES 14.1 %; MONOCYTES ABSOLUTE 1.91 10/3/uL (0.21-1.20); NEUTROPHILS 73.1 %; NEUTROPHILS ABSOLUTE 9.92 10/3/uL (2.02-8.40); PLATELET COUNT 208 10/3/uL (150-400); RBC DISTRIBUTION WIDTH 15.1 % (12.0-16.0); RED CELL COUNT 4.29 10/6/uL (4.7-6.1); WHITE BLOOD CELLS 13.6 10/3/uL (4.5-10.5)
[2016-07-16 04:16] LABS: MANUAL DIFF NO %
[2016-07-16 04:27] LABS: BUN (BLOOD UREA NITROGEN) 10 MG/DL (6-23); CALCIUM, SERUM 8.1 MG/DL (8.5-10.4); CHLORIDE, SERUM 110 MMOL/L (96-112); CO2 (CARBON DIOXIDE) 28 MMOL/L (24-34); CREATININE 0.77 MG/DL (0.70-1.30); GFR AFRICAN AMERICAN 109 ML/MIN (>=60); GFR NON AFRICAN AMERICAN 94 ML/MIN (>=60); GLUCOSE, SERUM 111 MG/DL (60-99); POTASSIUM, SERUM 4.2 MMOL/L (3.5-5.3); SODIUM, SERUM 143 MMOL/L (135-148)
[2016-07-16 04:29] LABS: PHOSPHORUS, SERUM 3.5 MG/DL (2.5-4.5)
[2016-07-16 18:32] LABS: HBV DNA QUANT LOG10 VALUE Not Detected (NOTDET); HBV DNA QUANT RESULT Not Detected (NOTDET)
[2016-07-17 04:00] LABS: BASOPHILS 0.3 %; BASOPHILS ABSOLUTE 0.04 10/3/uL (0.0-0.16); EOSINOPHILS 1.9 %; EOSINOPHILS ABSOLUTE 0.27 10/3/uL (0.0-0.53); HEMOGLOBIN 13.1 g/dL (13.6-17.8); IMMATURE GRANULOCYTES 0.4 %; IMMATURE GRANULOCYTES ABSOLUTE 0.05 10/3/uL (0.0-0.11); LYMPHOCYTES 9.5 %; LYMPHOCYTES ABSOLUTE 1.34 10/3/uL (0.67-4.30); MEAN CORPUSCULAR HEMOGLOB 31.9 pg (26.0-34.0); MEAN CORPUSCULAR VOLUME 99.8 fL (80-100); MEAN PLATELET VOLUME 9.6 fL (9.2-13.0); MONOCYTES 13.1 %; MONOCYTES ABSOLUTE 1.85 10/3/uL (0.21-1.20); NEUTROPHILS 74.8 %; PLATELET COUNT 206 10/3/uL (150-400); RBC DISTRIBUTION WIDTH 15.2 % (12.0-16.0); RED CELL COUNT 4.11 10/6/uL (4.7-6.1); WHITE BLOOD CELLS 14.2 10/3/uL (4.5-10.5)
[2016-07-17 04:02] LABS: MANUAL DIFF NO %
[2016-07-17 04:05] LABS: INTERNATIONAL NORMAL RATI 1.4 UNITS (-); PROTIME (NOT ORD) 17.3 SEC (12.0-14.5)
[2016-07-17 04:19] LABS: A/G RATIO 0.5 (0.7-1.9); ALKALINE PHOSPHATASE 61 U/L (45-117); BUN (BLOOD UREA NITROGEN) 12 MG/DL (6-23); CHLORIDE, SERUM 109 MMOL/L (96-112); CO2 (CARBON DIOXIDE) 29 MMOL/L (24-34); CREATININE 0.69 MG/DL (0.70-1.30); GFR AFRICAN AMERICAN 114 ML/MIN (>=60); GFR NON AFRICAN AMERICAN 98 ML/MIN (>=60); GLOBULIN 3.9 G/DL (2.5-4.1); GLUCOSE, SERUM 104 MG/DL (60-99); POTASSIUM, SERUM 4.1 MMOL/L (3.5-5.3); SGOT(AST) 26 U/L (5-40); SGPT(ALT) 23 U/L (5-65); SODIUM, SERUM 140 MMOL/L (135-148); TOTAL BILIRUBIN 1.1 MG/DL (0-1.2); TOTAL PROTEIN 5.9 G/DL (6.0-8.5)
[2016-07-18 02:16] LABS: HCV RNA VIRAL LOAD 5.5 (NOTDET)
[2016-07-18 06:43] LABS: BASOPHILS 0.3 %; BASOPHILS ABSOLUTE 0.04 10/3/uL (0.0-0.16); EOSINOPHILS 2.1 %; EOSINOPHILS ABSOLUTE 0.27 10/3/uL (0.0-0.53); HEMATOCRIT 42.3 % (40.0-51.0); HEMOGLOBIN 13.7 g/dL (13.6-17.8); IMMATURE GRANULOCYTES 0.1 %; IMMATURE GRANULOCYTES ABSOLUTE 0.01 10/3/uL (0.0-0.11); LYMPHOCYTES ABSOLUTE 1.14 10/3/uL (0.67-4.30); MANUAL DIFF NO %; MEAN CORPUS HGB CONC 32.4 g/dL (32.0-36.0); MEAN CORPUSCULAR HEMOGLOB 32.5 pg (26.0-34.0); MEAN CORPUSCULAR VOLUME 100.2 fL (80-100); MEAN PLATELET VOLUME 9.8 fL (9.2-13.0); MONOCYTES 11.2 %; MONOCYTES ABSOLUTE 1.42 10/3/uL (0.21-1.20); NEUTROPHILS 77.3 %; NEUTROPHILS ABSOLUTE 9.82 10/3/uL (2.02-8.40); PLATELET COUNT 219 10/3/uL (150-400); RBC DISTRIBUTION WIDTH 15.1 % (12.0-16.0); RED CELL COUNT 4.22 10/6/uL (4.7-6.1); WHITE BLOOD CELLS 12.7 10/3/uL (4.5-10.5)
[2016-07-18 06:52] LABS: BUN (BLOOD UREA NITROGEN) 15 MG/DL (6-23); CALCIUM, SERUM 8.7 MG/DL (8.5-10.4); CHLORIDE, SERUM 105 MMOL/L (96-112); CO2 (CARBON DIOXIDE) 30 MMOL/L (24-34); CREATININE 0.73 MG/DL (0.70-1.30); GFR AFRICAN AMERICAN 111 ML/MIN (>=60); GFR NON AFRICAN AMERICAN 96 ML/MIN (>=60); GLUCOSE, SERUM 116 MG/DL (60-99); POTASSIUM, SERUM 4.3 MMOL/L (3.5-5.3); SODIUM, SERUM 137 MMOL/L (135-148)
== END 2016-07-18 14:10 | disposition hospice, inpatient (51) | DRG 987 ==
LOC: ER 17:06 → MIC 19:27 → 7NO 07-09 21:35
PROVIDERS: Emergency Medicine; Family Medicine; Hospitalist; Internal Medicine Critical Care Medicine
PROC: 04L33DZ Occlusion of Hepatic Artery with Intraluminal Device, Percutaneous Approach (ICD-10-PCS; principal; 2016-07-08)
PROC: B4121ZZ Fluoroscopy of Hepatic Artery using Low Osmolar Contrast (ICD-10-PCS; 2016-07-08)
PROC: 0FB03ZX Excision of Liver, Percutaneous Approach, Diagnostic (ICD-10-PCS; 2016-07-13)
DX: C22.0 Liver cell carcinoma (principal); K72.00 Acute and subacute hepatic failure without coma; N17.9 Acute kidney failure, unspecified; I82.621 Acute embolism and thrombosis of deep veins of right upper extremity; J44.0 Chronic obstructive pulmonary disease with (acute) lower respiratory infection; F10.230 Alcohol dependence with withdrawal, uncomplicated; K76.89 Other specified diseases of liver; Z51.5 Encounter for palliative care; F17.210 Nicotine dependence, cigarettes, uncomplicated; R19.7 Diarrhea, unspecified; I25.2 Old myocardial infarction; B19.20 Unspecified viral hepatitis C without hepatic coma; J20.9 Acute bronchitis, unspecified; Z66 Do not resuscitate; F41.9 Anxiety disorder, unspecified; Z88.0 Allergy status to penicillin; Z88.5 Allergy status to narcotic agent; Z79.82 Long term (current) use of aspirin
CPT/HCPCS: 36247; 36415; 36430; 37244; 47000; 71010; 74176; 74177; 75726; 77012; 80048; 80053; 80069; 80074; 80076; 82105; 82140; 83605; 83690; 83735; 83880; 84100; 84145; 85025; 85610; 85730; 86850; 86900; 86901; 86920; 87517; 87522; 87641; 88307; 88313; 88333; 88342; 93005; 93971; 94640; 96374; 96375; 97162-GP; 97164-GP; 97530-GP; 99152; 99153; 99285; A9270-GY; C1769; C1887; C1894; C9113; G8978-CK-GP; G8979-CI-GP; J1170; J1956; J2250; J2543; J3010; J3411; J3475; Q9967